=== PATIENT | female | born 1990 | race Caucasian/White ===

== ENCOUNTER 2021-05-25 00:11 | Observation (INO) ==
[2021-05-25 01:30] LABS: Bacteria,Urine Occasional /HPF (Few); Glucose,Urine (UA) Negative (Negative); Ketones,Urine 15 mg/dL (Negative); Nitrite,Urine Negative (Negative); Protein,Urine Negative (Negative); RBC,Urine 2 /HPF (0-4); Squamous Epithelial Cell,Urine Occasional /HPF (0-10); Urine Appearance Clear (Clear); Urine Color Light Yellow (Yellow)
[2021-05-25 01:31] LABS: Bilirubin,Urine Negative (Negative); Blood, Urine Negative (Negative); Urine Urobilinogen 0.2 eU/dL (<2.0)
[2021-05-25 01:48] LABS: Basophils # 0.1 10*3/uL (0.0-0.2); Basophils % 0.4 % (0.0-0.8); Eosinophils # 0.2 10*3/uL (0.0-0.87); Eosinophils % 1.2 % (0.00-10.9); Hematocrit 33.3 VOL% (35.7-47.0); Hemoglobin 11.1 GM/DL (12.0-16.0); Immature Granulocytes % 0.4 %; Immature Granulocytes Absolute 0.05 #; Lymphocytes # 2.5 10*3/uL (1.4-4.0); Lymphocytes % 20.6 % (21.3-54.2); Mean Corpuscular HGB Conc 33.3 GM/DL (32-36); Mean Corpuscular Volume 91.5 FL (87-102); Mean Platelet Volume 12.1 FL (9.6-12.0); Monocytes % 11.6 % (1.7-12.7); Neutrophils % 65.8 % (38.7-73.9); Platelet Count 413 T/CUMM (130-400); Red Blood Count 3.64 MC/CUMM (3.8-5.5); Red Cell Distribution Width 14.4 % (9.3-17.3); White Blood Count 12.3 T/CUMM (4-12)
[2021-05-25 02:01] LABS: Albumin 2.1 G/DL (3.4-5.0); Bilirubin,Direct 0.22 MG/DL (0.0-0.20); Bilirubin,Total 0.5 MG/DL (0.20-1.00); Osmolality,Calculated 274.4 MOS/KG (273-304); Total Protein 6.1 G/DL (6.4-8.2); Uric Acid 4.6 MG/DL (2.6-6.0)
[2021-05-25 02:02] LABS: INR 0.9; PT Patient Result 10.2 SECS (10.5-12.0); Partial Thromboplastin Time 31.8 SECS (23.8-32.1)
[2021-05-25 02:07] LABS: Potassium 2.4 MMOL/L (3.5-5.1)
[2021-05-25] MEDS ORDERED: POTASSIUM CHLORIDE RIDER 10 MEQ/100 ML PREMIX IV PRN (02:55)
[2021-05-25 02:56] LABS: Barbiturates Screen,Urine Positive (Negative); Benzodiazepines Screen,Urine Negative (Negative); Cannabinoid Screen,Urine Negative (Negative); Opiate Screen,Urine Negative (Negative); Phencyclidine Screen,Urine Negative (Negative)
[2021-05-25] MEDS ORDERED: LACTATED RINGERS 1,000 ML IV PRN (02:59)
[2021-05-25] MEDS ORDERED: ACETAMINOPHEN 500 MG TABLET PO PRN (03:16)
[2021-05-25] MEDS ORDERED: MAGNESIUM SULF RIDER 2 GM/50 ML PREMIX IV PRN (03:38)
[2021-05-25] MEDS ORDERED: POTASSIUM CHLORIDE INJ 50 MEQ in SODIUM CHLORIDE 0.9% 500 ML IV ONE (04:00)
[2021-05-25] MEDS ORDERED: oxyCODONE/ACETAMINOPHEN 5-325 MG TABLET PO ONE (08:28)
[2021-05-25] MEDS: LABETALOL 100 MG TABLET PO SCH ×2 (09:37→20:06)
[2021-05-25 12:05] LABS: Albumin 1.9 G/DL (3.4-5.0); Bilirubin,Total 0.4 MG/DL (0.20-1.00); Calcium 8.4 MG/DL (8.5-10.1); Osmolality,Calculated 277.3 MOS/KG (273-304); Total Protein 5.7 G/DL (6.4-8.2)
[2021-05-25 12:21] LABS: Potassium 2.5 MMOL/L (3.5-5.1)
[2021-05-25] MEDS: POTASSIUM CHLORIDE 20 MEQ TABLET PO PRN ×4 (12:47→19:06)
[2021-05-25] MEDS: oxyCODONE/ACETAMINOPHEN 5-325 MG TABLET PO PRN ×2 (13:20→19:10)
[2021-05-26] MEDS: oxyCODONE/ACETAMINOPHEN 5-325 MG TABLET PO PRN ×5 (01:05→22:49)
[2021-05-26] MEDS: POTASSIUM CHLORIDE 20 MEQ TABLET PO SCH ×8 (02:55→22:48)
[2021-05-26] MEDS: LABETALOL 100 MG TABLET PO SCH ×2 (07:42→08:44)
[2021-05-26] MEDS ORDERED: LABETALOL 100 MG TABLET PO ONE (08:43)
[2021-05-26] MEDS: LABETALOL 200 MG TABLET PO SCH (16:32)
[2021-05-26 19:21] LABS: Basophils % 0.2 % (0.0-0.8); Eosinophils # 0.2 10*3/uL (0.0-0.87); Eosinophils % 1.2 % (0.00-10.9); Hematocrit 30.7 VOL% (35.7-47.0); Immature Granulocytes % 0.4 %; Immature Granulocytes Absolute 0.06 #; Lymphocytes # 2.1 10*3/uL (1.4-4.0); Mean Corpuscular HGB Conc 32.6 GM/DL (32-36); Mean Corpuscular Volume 93.6 FL (87-102); Mean Platelet Volume 12.6 FL (9.6-12.0); Monocytes % 10.7 % (1.7-12.7); Neutrophils % 73.5 % (38.7-73.9); Platelet Count 391 T/CUMM (130-400); Red Blood Count 3.28 MC/CUMM (3.8-5.5); Red Cell Distribution Width 14.8 % (9.3-17.3); White Blood Count 15.3 T/CUMM (4-12)
[2021-05-26 19:34] LABS: Alanine Aminotransferase 17 U/L (13-56); Albumin 1.9 G/DL (3.4-5.0); Alkaline Phosphatase 212 U/L (45-117); Aspartate Amino Transferase 21 U/L (0-37); Bilirubin,Total < 0.39 MG/DL (0.20-1.00); Blood Urea Nitrogen 2 MG/DL (7-18); Calcium 8.3 MG/DL (8.5-10.1); Carbon Dioxide 22 MMOL/L (21-32); Estimated Glom Filtration Rate 122 ML/MIN; Glucose 103 MG/DL (74-106); Osmolality,Calculated 281.8 MOS/KG (273-304); Potassium 3.1 MMOL/L (3.5-5.1); Sodium 144 MMOL/L (136-145); Total Protein 5.7 G/DL (6.4-8.2)
[2021-05-26] MEDS: PANTOPRAZOLE 40 MG VIAL IV SCH (19:39)
[2021-05-26] MEDS ORDERED: PANTOPRAZOLE 40 MG TABLET PO SCH (21:00)
[2021-05-26] MEDS ORDERED: PANTOPRAZOLE 40 MG VIAL IV SCH (21:00)
[2021-05-27] MEDS: ALUMINUM/MAGNES/SIMETH MAX STR 30 ML UDCUP PO PRN ×3 (00:01→07:45)
[2021-05-27] MEDS: LABETALOL 200 MG TABLET PO SCH ×2 (00:01→09:05)
[2021-05-27] MEDS: oxyCODONE/ACETAMINOPHEN 5-325 MG TABLET PO PRN ×2 (04:09→09:18)
[2021-05-27 07:29] VITALS: BP 149/86
[2021-05-27] MEDS: PANTOPRAZOLE 40 MG VIAL IV SCH (09:05)
== END 2021-05-27 10:55 | disposition home or self-care (01) ==
LOC: N.LDOUT 00:11 → N.OB 00:11 → N.LD 00:17 → N.OB 20:43
PROVIDERS: ADMIT Specialist; ATTEND Specialist